=== PATIENT | male | born 1965 | race Two or more races ===

== ENCOUNTER 2018-03-07 18:12 | Emergency (ER) | payer OTHER ==
[~2018-03-07] VITALS: Ht 167.6 cm; Wt 87.1 kg
[2018-03-07 18:32] VITALS: BP 126/88
== END 2018-03-07 19:24 | disposition home or self-care (01) ==
LOC: ER 18:12
DX: J18.9 Pneumonia, unspecified organism (principal)
CPT/HCPCS: 71045; 99283; A4606; Z7610

== ENCOUNTER 2018-03-29 21:16 | Emergency (ER) | payer OTHER ==
[~2018-03-29] VITALS: Ht 167.6 cm; Wt 81.6 kg
[2018-03-29 21:45] VITALS: BP 144/86
== END 2018-03-29 22:54 | disposition home or self-care (01) ==
LOC: ER 21:19
DX: J18.9 Pneumonia, unspecified organism (principal)
CPT/HCPCS: 71045; 93005; 99284; A4606; Z7610

== ENCOUNTER 2020-08-16 01:47 | Emergency (ER) | payer OTHER ==
[~2020-08-16] VITALS: Ht 167.6 cm; Wt 81.6 kg
[2020-08-16] MEDS ORDERED: KETOROLAC TROMETHAMINE INJ 30 MG/ML VIAL IV ONE (02:00)
--- NOTE | 2020-08-16 02:00 | NUR ---
BIBS FOR C/O EPIGASTRIC PAIN X 3 HRS. -N/V/D, PT AAOX4, NOT IN ACUTE DISTRESS, -SOB, VSS, PENDING ER PROVIDER FAUSTINOAL
[2020-08-16] MEDS ORDERED: KETOROLAC TROMETHAMINE 15 MG/ML VIAL ONE (02:15)
[2020-08-16] MEDS ORDERED: MAG HYDROX/AL HYDROX/SIMETH 30 ML UDC ONE (02:16)
[2020-08-16] MEDS ORDERED: LIDOCAINE VISCOUS 2% UD 15 ML UDC ONE (02:16)
[2020-08-16 02:18] LABS: BASOPHILS # (AUTO) 0.1 /CMM (0.0-0.2); BASOPHILS % (AUTO) 1.1 % (0.0-2.0); EOSINOPHILS % (AUTO) 2.3 % (0.0-6.0); HEMATOCRIT 37 % (39-51); HEMOGLOBIN 12.4 g/dL (13.5-17.5); LYMPHOCYTES % (AUTO) 34.7 % (20.0-44.0); MEAN CORPUSCULAR HGB CONC 34 g/dl (31.0-36.0); MEAN CORPUSCULAR VOLUME 85 fL (80-96); MONOCYTES # (AUTO) 0.8 /CMM (0.1-1.30); MONOCYTES % (AUTO) 6.8 % (2.0-12.0); NEUTROPHILS # (AUTO) 6.4 /CMM (1.8-8.9); NEUTROPHILS % (AUTO) 55.1 % (43.0-81.0); PLATELET COUNT (AUTO) 192 /CMM (150-450); RED BLOOD CELL COUNT(AUTO) 4.35 MIL/uL (4.5-6.0); WHITE BLOOD COUNT (AUTO) 11.6 K/uL (4.3-11.0)
[2020-08-16 02:30] LABS: CREATININE 1.1 mg/dL (0.6-1.3); POTASSIUM 3.2 mmol/L (3.5-5.1)
[2020-08-16] MEDS ORDERED: LIDOCAINE VISCOUS 2% UD 15 ML UDC MM ONE (02:30)
[2020-08-16] MEDS ORDERED: MAG HYDROX/AL HYDROX/SIMETH 30 ML UDC PO ONE (02:30)
--- NOTE | 2020-08-16 02:30 | NUR ---
CT CANCELLED AT THIS TIME,. WILL GIVE GI COCKTAIL PER DR. MAN
[2020-08-16 03:05] LABS: ALANINE AMINOTRANSFERASE 25 U/L (12-78); ALBUMIN 3.6 g/dL (3.4-5.0); ALKALINE PHOSPHATASE 54 U/L (46-116); ASPARTATE AMINOTRANSFERASE 16 U/L (15-37); BILIRUBIN,DIRECT 0.1 mg/dL (0.0-0.2); BILIRUBIN,TOTAL 0.2 mg/dL (0.2-1.0); LIPASE 223 U/L (73-393); TOTAL PROTEIN, SERUM 7.6 g/dL (6.4-8.2)
[2020-08-16] MEDS ORDERED: MORPHINE SULFATE INJ 2 MG/ML DISP.SYRIN IV ONE (03:30)
[2020-08-16] MEDS ORDERED: MORPHINE SULFATE INJ 4 MG/ML DISP.SYRIN ONE (04:03)
[2020-08-16] MEDS ORDERED: IOHEXOL-300 100 ML VIAL IV ONE (04:23)
[2020-08-16] MEDS ORDERED: IV NS 0.9% 250 ML IV ONE (04:23)
--- NOTE | 2020-08-16 06:21 | NUR ---
Patient discharged to home in stable condition. Written and verbal after care instructions given. Patient verbalizes understanding of instruction. IV removed. Catheter intact and site benign. Pressure and 4x4 applied to site. No bleeding noted.
[2020-08-16 06:22] VITALS: BP 149/90
== END 2020-08-16 06:22 | disposition home or self-care (01) ==
LOC: ER 01:51
DX: K29.70 Gastritis, unspecified, without bleeding (principal)
CPT/HCPCS: 36415; 74177; 80048; 80076; 83690; 84484; 85025; 93005; 96374; 96375; 99285; J1885; J2270; J7050; Q9967

== ENCOUNTER 2021-12-07 10:56 | Emergency (ER) | payer OTHER ==
[~2021-12-07] VITALS: Ht 165.1 cm; Wt 79.4 kg
--- NOTE | 2021-12-07 11:15 | NUR ---
ABDOMINAL PAIN X 3 DAYS,NO VOMITING/DIARRHEA, PATIENT FELT WEAKNESS OF BILATERAL LOWER EXTREMITIES. PLACED COMFORTABLY IN BED. ATTACHED TO MONITOR. VITALS CHECKED.
--- NOTE | 2021-12-07 11:25 | NUR ---
IV CANNULA G20 INSERTED ON RIGHT AC. BLOOD DRAWN AND SENT TO LAB.
--- NOTE | 2021-12-07 11:32 | NUR ---
URINE SPECIMEN SENT TO LAB.
[2021-12-07] MEDS ORDERED: MAG HYDROX/AL HYDROX/SIMETH 30 ML UDC ONE (11:34)
[2021-12-07] MEDS ORDERED: LIDOCAINE VISCOUS 2% UD 15 ML UDC ONE (11:34)
[2021-12-07] MEDS ORDERED: ONDANSETRON HCL/PF 4 MG/2 ML VIAL ONE (11:34)
[2021-12-07] MEDS ORDERED: FAMOTIDINE/PF INJ 20 MG/2 ML VIAL IV ONE (11:35)
[2021-12-07 11:39] LABS: BILIRUBIN,URINE NEGATIVE (NEGATIVE); COLOR,URINE YELLOW (YELLOW); LEUKOCYTE ESTERASE ,URINE NEGATIVE (NEGATIVE); NITRITE, URINE NEGATIVE (NEGATIVE); PH,URINE 6.5 (5.0-8.0); PROTEIN,URINE 30 mg/dl (NEGATIVE); UGLUCOSE NEGATIVE (NEGATIVE); UROBILINOGEN,URINE 0.2 EU/dL (0.2)
[2021-12-07 11:39] LABS: BASOPHILS # (AUTO) 0.1 K/uL (0.0-0.2); BASOPHILS % (AUTO) 0.5 % (0.0-2.0); EOSINOPHILS % (AUTO) 2.5 % (0.0-6.0); HEMATOCRIT 35 % (39-51); HEMOGLOBIN 11.9 g/dL (13.5-17.5); LYMPHOCYTES # (AUTO) 2.7 K/uL (0.8-4.8); LYMPHOCYTES % (AUTO) 23.3 % (20.0-44.0); MEAN CORPUSCULAR HGB CONC 34 g/dl (31.0-36.0); MEAN CORPUSCULAR VOLUME 84 fL (80-96); MONOCYTES % (AUTO) 8.5 % (2.0-12.0); NEUTROPHILS # (AUTO) 7.6 K/uL (1.8-8.9); NEUTROPHILS % (AUTO) 65.2 % (43.0-81.0); PLATELET COUNT (AUTO) 201 K/uL (150-450); RED BLOOD CELL COUNT(AUTO) 4.19 MIL/uL (4.5-6.0); WHITE BLOOD COUNT (AUTO) 11.6 K/uL (4.3-11.0)
[2021-12-07] MEDS: FAMOTIDINE/PF INJ 20 MG/2 ML VIAL IV ONE (11:42)
[2021-12-07] MEDS: IV NS 0.9% 1,000 ML BAG IV ONE (11:42)
[2021-12-07] MEDS: ONDANSETRON HCL/PF 4 MG/2 ML VIAL IVP ONE (11:43)
[2021-12-07] MEDS: MAG HYDROX/AL HYDROX/SIMETH 30 ML UDC PO ONE (11:43)
[2021-12-07] MEDS: LIDOCAINE VISCOUS 2% UD 15 ML UDC MM ONE (11:43)
--- NOTE | 2021-12-07 11:44 | NUR ---
EKG DONE AT BEDSIDE
[2021-12-07 11:58] LABS: ALBUMIN 3.5 g/dL (3.4-5.0); BILIRUBIN,DIRECT 0.1 mg/dL (0.0-0.2); BILIRUBIN,TOTAL 0.5 mg/dL (0.2-1.0); CREATININE 1.1 mg/dL (0.6-1.3); TOTAL PROTEIN, SERUM 7.9 g/dL (6.4-8.2)
--- NOTE | 2021-12-07 12:00 | NUR ---
CAME BACK FROM CT SCAN DEPT
[2021-12-07 13:20] LABS: BACTERIA,URINE Rare /HPF (None Seen); RBC,URINE 0-2 /HPF (0-2); SQUAMOUS EPITHELIAL CELL,UR 0-2 /HPF (None Seen); WBC,URINE 0-2 /HPF (0-3)
[2021-12-07] MEDS ORDERED: FAMO-131 PO ×2 (14:22→15:49)
--- NOTE | 2021-12-07 14:27 | NUR ---
LEYLA OF ABDOMEN DONE AT BEDSIDE
[2021-12-07] MEDS ORDERED: ONDA4TAB5 PO (15:49)
--- NOTE | 2021-12-07 16:15 | NUR ---
IV CANNULA REMOVED
--- NOTE | 2021-12-07 16:15 | NUR ---
Patient discharged to home in stable condition. Written and verbal after care instructions given. Patient verbalizes understanding of instruction.
[2021-12-07 16:16] VITALS: BP 124/83
== END 2021-12-07 16:16 | disposition home or self-care (01) ==
LOC: ER 10:56
DX: R10.13 Epigastric pain (principal); R10.11 Right upper quadrant pain; Z79.899 Other long term (current) drug therapy
CPT/HCPCS: 36415; 74176; 76705; 80048; 80076; 81001; 83690; 85025; 93005; 96361; 96374; 96375; 99285; J2405; J3490; J7030